=== PATIENT | female | born 1995 | race Caucasian/White ===

== ENCOUNTER 2018-09-09 06:04 | Inpatient (IN) | payer MEDICAID ==
[2018-09-09 06:45] LABS: APPEARANCE,URINE CLEAR; BILIRUBIN,URINE NEGATIVE (NEGATIVE); COLOR,URINE YELLOW; GLUCOSE, URINE NEGATIVE (NEGATIVE); KETONES,URINE NEGATIVE (NEGATIVE); LEUKOCYTE ESTERASE,URINE NEGATIVE (NEGATIVE); NITRITE,URINE NEGATIVE (NEGATIVE); PROTEIN,URINE NEGATIVE (NEGATIVE); URINE SPECIFIC GRAVITY 1.013; UROBILINOGEN,URINE NEGATIVE mg/dL (<2.0)
[2018-09-09] MEDS ORDERED: RINGERS SOLUTION,LACTATED 1,000 ML IV PRN (06:55)
--- NOTE | 2018-09-09 07:00 | Admission Physical ---
Datetime Report Generated by CPN: 09/09/2018 06:59 CURRENT ADMISSION Chief Complaint: Suspected Ruptured Membranes Indication for Induction: PROM Admit Impression : Term, Intrauterine ; No Active Labor; Ruptured Membranes Admit Plan: Admit to Unit; Initiate Labor Induction Protocol ALLERGIES Medication Allergies: No Latex: No Latex Allergies OBSTETRICAL HISTORY EDC: 09/11/2018 00:00 : 2 Para: 0 Gestational Diabetes: No Rh Sensitization: No Incompetent Cervix: No ELIEZER: No Infertility: No ART Treatment: No Uterine Anomaly: No IUGR: No Hx Previous C/S: No Macrosomia: No Hx Loss/Stillborn: No PIH: No Hx : No Placenta Previa/Abruption: No Depression/PP Depression: No PTL/PROM: No Post Hemorrhage: No Obstetrical History Comments: G1- EAB 6 weeks G2- current SEE RECORDS Alcohol: No Marijuana : No Cocaine: No Other Illicit Drugs: No Cigarettes: Never Smoker. 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 Heart Disease: No Hosp/Surgery: No Autoimmune Disorder: No Anesthetic Complications: No Kidney Disease: No Abnormal Pap Smear: No Neuro/Epilepsy: No Psychiatric Disorders: Yes Other Medical Diseases: No Hepatitis/Liver Disease: No Significant Family History: No Varicosities/Phlebitis: No Trauma/Violence : No Thyroid Dysfunction: No Medical History Comments: anxiety INFECTIOUS HISTORY Gonorrhea: No Genital Herpes: No Chlamydia: No Tuberculosis: No Syphilis: No Hepatitis: No HIV/AIDS Exposure: No Rash or Viral Illness: No HPV: No PHYSICAL EXAM General: Normal HEENT: Normal Neurologic: Normal Thyroid: Normal Heart: Normal Lungs: Normal Breast: Normal Back: Normal Abdomen: Normal Genitourinary Exam: Normal Extremities: Normal DTRs: Normal Pelvic Type: Adequate Vital Signs: Reviewed; Within Normal Limits VAGINAL EXAM Dilatation: 1 Effacement: 70 Station: -3 Contraction Comments: irregular MEMBRANES Pooling: Positive Membranes: Ruptured Amniotic Fluid Color: Clear FETUS A EGA: 39.5 Monitoring: External US FHR- Baseline: 130 Variability: Moderate 6-25bpm Accelerations: 15X15 Decelerations: None FHR Category: Category I Estimated Weight (gm): 3500 Presentation: Vertex Admit Comment: will give dose of cytotec for cervical ripening and start pitocin when cervix more favorable. PLANS FOR LABOR AND DELIVERY Pain Management: Epidural Feeding Preference: Breast Benefit of Breast Feed Discussed: Yes Circumcision: Yes INFORMED CONSENT Signature: with User ID: [email or web address]
[2018-09-09 07:02] LABS: URINE AMPHETAMINES SCREEN NEGATIVE; URINE BARBITURATES SCREEN NEGATIVE; URINE BENZODIAZEPINES SCREEN NEGATIVE; URINE COCAINE SCREEN NEGATIVE; URINE METHADONE SCREEN NEGATIVE; URINE PHENCYCLIDINE SCREEN NEGATIVE
[2018-09-09 07:11] LABS: URINE MARIJUANA (THC) SCREEN UNCONFIRMED POSITIVE
[2018-09-09] MEDS ORDERED: MISOPROSTOL 0.1 MG TABLET PO ONE (07:16)
[2018-09-09] MEDS ORDERED: MISOPROSTOL 0.1 MG TABLET PV ONE (07:19)
[2018-09-09] MEDS ORDERED: MISOPROSTOL 0.1 MG TABLET ONE (07:25)
[2018-09-09] MEDS ORDERED: MISOPROSTOL 0.2 MG TABLET ONE (07:46)
[2018-09-09] MEDS ORDERED: LIDOCAINE 1% INJ-PF (10 MG/ML) 30 ML SDV ONE (07:46)
[2018-09-09] MEDS ORDERED: OXYTOCIN/NORMAL SALINE 20 UNIT/1,000 ML RTUINJ ONE (07:47)
[2018-09-09 08:04] LABS: ABSOLUTE EOSINOPHILS # (AUTO) 0.1 10^3/uL (0.0-0.6); ABSOLUTE MONOCYTES (AUTO) 0.9 10^3/uL (0.1-1.4); ABSOLUTE NEUT (AUTO) 9.8 10^3/uL (1.7-8.2); BASOPHILS % (AUTO) 0.2 % (0-2); EOSINOPHILS % (AUTO) 0.7 % (0-6); HEMATOCRIT 33.4 % (36.0-47.0); HEMOGLOBIN 11.2 g/dL (12.0-15.5); LYMPHOCYTES % (AUTO) 15.5 % (13-45); MEAN CORPUSCULAR HGB CONC 33.7 g/dL (32.0-36.0); MEAN CORPUSCULAR VOLUME 86 fl (80-97); MONOCYTES % (AUTO) 7.2 % (3-13); PLATELET COUNT 188 10^3/uL (150-450); RED BLOOD COUNT 3.87 10^6/uL (3.72-5.28); RED CELL DISTRIBUTION WIDTH 14.5 % (11.5-14.0); SEGMENTED NEUTROPHILS % (AUTO) 76.4 % (42-78); TOTAL CELLS COUNTED % (AUTO) 100 %; WHITE BLOOD COUNT 12.9 10^3/uL (4.0-10.5)
[2018-09-09] MEDS ORDERED: OXYTOCIN/NORMAL SALINE 20 UNIT/1,000 ML RTUINJ IV PRN (11:56)
[2018-09-09] MEDS ORDERED: NALBUPHINE HCL INJ 10 MG/1 ML AMPULE ONE (16:12)
[2018-09-09] MEDS ORDERED: PROMETHAZINE HCL INJ 25 MG/1 ML VIAL ONE (16:12)
[2018-09-09] MEDS ORDERED: NALBUPHINE HCL INJ 10 MG/1 ML AMPULE INJ ONE (16:28)
[2018-09-09] MEDS ORDERED: PROMETHAZINE HCL INJ 25 MG/1 ML VIAL IV ONE (16:29)
[2018-09-09] MEDS ORDERED: ONDANSETRON HCL INJ/PF 4 MG/2 ML SDV ONE (16:51)
[2018-09-09] MEDS ORDERED: ONDANSETRON HCL INJ/PF 4 MG/2 ML SDV IV ONE (16:54)
[2018-09-09] MEDS ORDERED: BUPIVACAINE HCL 0.25 % INJ/PF (2.5 MG/1 ML) 30 ML VIAL ONE (19:56)
[2018-09-09] MEDS ORDERED: PHENYLEPHRINE HCL INJ/PF 10 MG/1 ML SDV ONE (19:56)
[2018-09-09] MEDS ORDERED: FENTANYL CITRATE INJ/PF 100 MCG/2 ML AMPUL ONE (19:56)
[2018-09-09] MEDS ORDERED: EPHEDRINE SULFATE INJ 50 MG/1 ML AMPULE ONE (19:56)
[2018-09-09] MEDS ORDERED: FENTANYL/BUPIVACAINE/NS/PF 300 MCG/150 ML RTUINJ EPI ONE (19:56)
[2018-09-09] MEDS ORDERED: LIDOCAINE 1.5%/EPINEPHRINE INJ 5 ML AMP ONE (19:57)
[2018-09-09] MEDS ORDERED: ACETAMINOPHEN 325 MG TABLET PO ONE (23:40)
[2018-09-09] MEDS ORDERED: ACETAMINOPHEN 325 MG TABLET ONE (23:41)
[2018-09-10] MEDS ORDERED: BENZOCAINE/MENTHOL AEROSOL SPRAY 56 ML TOP PRN (02:43)
[2018-09-10] MEDS ORDERED: PROMETHAZINE HCL 25 MG SUPP.RECT PR PRN (02:43)
[2018-09-10] MEDS ORDERED: ACETAMINOPHEN 650 MG SUPP.RECT PR PRN (02:43)
[2018-09-10] MEDS ORDERED: DIBUCAINE 1% OINTMENT 56 GM TP PRN (02:43)
[2018-09-10] MEDS ORDERED: GLYCERIN/WITCH HAZEL LEAF 1 EACH MED..WIPE TP PRN (02:43)
[2018-09-10] MEDS ORDERED: NA PHOS,M-B/NA PHOS,DI-BA (ADULT) 133 ML ENEMA PR PRN (02:43)
[2018-09-10] MEDS ORDERED: ACETAMINOPHEN WITH CODEINE #3 TABLET PO PRN (02:43)
[2018-09-10] MEDS ORDERED: PROMETHAZINE HCL INJ 25 MG/1 ML VIAL IV PRN (02:43)
[2018-09-10] MEDS ORDERED: DIPHENHYDRAMINE HCL 25 MG CAPSULE PO PRN (02:43)
[2018-09-10] MEDS ORDERED: OXYTOCIN/NORMAL SALINE 20 UNIT/1,000 ML RTUINJ IV PRN (02:43)
[2018-09-10] MEDS ORDERED: MAGNESIUM HYDROXIDE SUSP 30 ML UDCUP PO PRN (02:43)
[2018-09-10] MEDS ORDERED: PSEUDOEPHEDRINE HCL 30 MG TABLET PO PRN (02:43)
[2018-09-10] MEDS ORDERED: DIPH/PERTUSS(ACELL)/TETANUS VAC/PF 0.5 ML SYR (>=10YO) IM PRN (02:43)
[2018-09-10] MEDS ORDERED: MEASLES,MUMPS&RUBELLA VACC/PF 0.5 ML VIAL SUBCUT PRN (02:43)
[2018-09-10] MEDS ORDERED: PROMETHAZINE HCL 25 MG TABLET PO PRN (02:43)
[2018-09-10] MEDS ORDERED: ZOLPIDEM TARTRATE 5 MG TABLET PO PRN (02:43)
[2018-09-10] MEDS ORDERED: OXYTOCIN/NORMAL SALINE 20 UNIT/1,000 ML RTUINJ ONE (03:24)
[2018-09-10] MEDS ORDERED: METHYLERGONOVINE MALEATE INJ/PF 0.2 MG/1 ML AMPULE ONE (04:38)
[2018-09-10] MEDS ORDERED: METHYLERGONOVINE MALEATE INJ/PF 0.2 MG/1 ML AMPULE IV ONE (04:50)
[2018-09-10] MEDS ORDERED: IBUPROFEN 800 MG TABLET ONE (05:04)
[2018-09-10] MEDS: IBUPROFEN 800 MG TABLET PO SCH ×3 (05:05→22:57)
[2018-09-10] MEDS ORDERED: CARBOPROST TROMETHAMINE INJ 250 MCG/1 ML AMPULE ONE (07:19)
[2018-09-10] MEDS ORDERED: ACETAMINOPHEN 325 MG TABLET ONE (07:24)
[2018-09-10] MEDS ORDERED: ACETAMINOPHEN 325 MG TABLET PO PRN (08:02)
[2018-09-10] MEDS ORDERED: LOPERAMIDE HCL 2 MG CAPSULE PO PRN ×2 (08:03)
[2018-09-10] MEDS ORDERED: CARBOPROST TROMETHAMINE INJ 250 MCG/1 ML AMPULE IM ONE (09:00)
[2018-09-10] MEDS ORDERED: MORPHINE SULFATE 10 MG/ML INJ IV ONE (09:06)
[2018-09-10 09:51] LABS: HEMATOCRIT 25.3 % (36.0-47.0); MEAN CORPUSCULAR HEMOGLOBIN 29.3 pg (27.0-33.4); MEAN CORPUSCULAR HGB CONC 33.8 g/dL (32.0-36.0); MEAN CORPUSCULAR VOLUME 87 fl (80-97); PLATELET COUNT 210 10^3/uL (150-450); RED BLOOD COUNT 2.92 10^6/uL (3.72-5.28); RED CELL DISTRIBUTION WIDTH 14.8 % (11.5-14.0)
[2018-09-10 09:56] LABS: WHITE BLOOD COUNT 27.4 10^3/uL (4.0-10.5)
[2018-09-10 09:57] LABS: HEMOGLOBIN 8.6 g/dL (12.0-15.5)
[2018-09-10] MEDS ORDERED: AMPICILLIN SOD INJ 2 GM VIAL IV ONE (10:22)
[2018-09-10] MEDS ORDERED: METHYLERGONOVINE MALEATE 0.2 MG TABLET ONE (10:34)
[2018-09-10] MEDS: PRENATAL VITAMIN W DHA CAPSULE PO SCH (10:39)
[2018-09-10] MEDS: FAMOTIDINE 20 MG TABLET PO SCH ×2 (10:39→22:55)
[2018-09-10] MEDS: FERROUS SULFATE 325 MG TABLET PO SCH ×2 (10:39→18:31)
[2018-09-10] MEDS: DOCUSATE SODIUM 100 MG CAPSULE PO SCH ×2 (10:41→18:32)
[2018-09-10] MEDS: SENNOSIDES/DOCUSATE 8.6-50 MG 1 EACH TABLET PO SCH (10:41)
[2018-09-10] MEDS ORDERED: LIDOCAINE 1% INJ-PF (10 MG/ML) 30 ML SDV ONE (11:24)
[2018-09-10] MEDS ORDERED: AMPICILLIN SODIUM 2 GM in NORMAL SALINE 100 ML IV ONE (11:30)
[2018-09-10] MEDS ORDERED: METHYLERGONOVINE MALEATE 0.2 MG TABLET PO SCH (12:00)
[2018-09-10] MEDS: METHYLERGONOVINE MALEATE 0.2 MG TABLET PO SCH ×4 (12:07→23:35)
--- NOTE | 2018-09-10 12:12 | PDOC PROGRESS REPORT ---
Subjective-OB Progress Note for:: 09/10/18 Subjective: 22yo G2 now P1 s/p delivery day. Pt.voiding without difficulty. Upon arrival to unit, pt's nurse called me into room. Pt. has been having heavy bleeding with clots after transfer from L&D. Pt reports heart racing and a little lightheaded after passing big clot in toilet. Physical Exam (OB) Vital Signs: Temp Pulse Resp BP Pulse Ox 99.6 F 87 18 126/75 H 99 09/10/18 08:20 09/10/18 08:20 09/10/18 08:20 09/10/18 08:20 09/10/18 08:20 - PIH/Pre-Eclampsia Clonus: Negative Headache: Absent Epigastric Pain: No Visual Changes: No - Lochia Lochia Amount: Heavy >50 ml Lochia Color: Rubra/Red - Abdomen Description: Tender Hernia Present: Yes Fundal Description: Firm Fundal Height: 1/u - 2/u - Respiratory Respiratory Status: No respiratory distress - Genitourinary Female External exam: Other - bilateral labial lacerations observed on exam and hemostatic Genitourinary Note: manual exploration revealed trailing membranes. A couple fragments of membranes out as well as several clots, but unable to get a long piece that continued to be palpated. Speculum exam used and three long fragments of trailing membranes released with ring forceps. Fundus firm bleeding stable. - Extremities Upper extremity: Normal inspection Lower extremities: Edema Foot: Edema - Neurological Cognition: Normal Orientation: AAOx4 Objective-Diagnostic Laboratory: 09/10/18 08:47 09/10/18 08:47 WBC 27.4 H D RBC 2.92 L Hgb 8.6 L D Hct 25.3 L MCV 87 MCH 29.3 MCHC 33.8 RDW 14.8 H Plt Count 210 Assessment and Plan(PN) - Assessment and Plan (1) Delivery normal Is this a current diagnosis for this admission?: Yes Plan: routine pp care (2) hemorrhage Qualifiers: hemorrhage type: other immediate Qualified Code(s): O72.1 - Other immediate hemorrhage Is this a current diagnosis for this admission?: Yes Plan: cbc obtained, will repeat at 2pm will reassess as needed, anticipate blood transfusion, pt agreeable prn. Ampicillin order as 1 time dose for prophylaxis. Reviewed plan with Dr. Oliva who is the [employer] SUPERVISOR partition notcher today. - Time Spent with Patient Time with patient: Greater than 35 minutes Medications reviewed and adjusted accordingly: Yes - Disposition Anticipated Discharge: Home Within: within 24 hours
--- NOTE | 2018-09-10 12:14 | PDOC PROGRESS REPORT ---
Subjective-OB Progress Note for:: 09/10/18 - pt with continued heavy bleeding. Transported to L&D for speculum exam with stirups. No vaginal or cervical lacerations noted, Dr. Oliva in room for 2nd opinion and able to visualize oozing bleeding from right labial laceration- laceration repaired iwth 3-0 chromic, hemostasis achieved. Fundus continues to be firm at this time. Pt transfered back to her room after repair and stable at this time. Physical Exam (OB) Vital Signs: Temp Pulse Resp BP Pulse Ox 98.8 F 120 H 18 131/82 H 98 09/10/18 11:59 09/10/18 11:59 09/10/18 11:59 09/10/18 11:59 09/10/18 11:59 - PIH/Pre-Eclampsia Clonus: Negative Headache: Absent Epigastric Pain: No Visual Changes: No - Lochia Lochia Amount: Heavy >50 ml Lochia Color: Rubra/Red - Abdomen Description: Tender Hernia Present: Yes Fundal Description: Firm Fundal Height: 1/u - 2/u Objective-Diagnostic Laboratory: 09/10/18 08:47 09/10/18 08:47 WBC 27.4 H D RBC 2.92 L Hgb 8.6 L D Hct 25.3 L MCV 87 MCH 29.3 MCHC 33.8 RDW 14.8 H Plt Count 210 Assessment and Plan(PN) - Assessment and Plan (1) Delivery normal Is this a current diagnosis for this admission?: Yes (2) hemorrhage Qualifiers: hemorrhage type: other immediate Qualified Code(s): O72.1 - Other immediate hemorrhage Is this a current diagnosis for this admission?: Yes - Time Spent with Patient Medications reviewed and adjusted accordingly: Yes - Disposition Anticipated Discharge: Home
--- NOTE | 2018-09-10 14:37 | PDOC PROGRESS REPORT ---
Subjective-OB Progress Note for:: 09/10/18 - pt reports minimal bleeding since repair of laceration, eating lunch now. repeat CBC to be drawn at this time. Pt. denies concerns at this time. Physical Exam (OB) Vital Signs: Temp Pulse Resp BP Pulse Ox 98.8 F 110 H 18 131/82 H 98 09/10/18 11:59 09/10/18 12:43 09/10/18 11:59 09/10/18 11:59 09/10/18 11:59 - PIH/Pre-Eclampsia Clonus: Negative Headache: Absent Epigastric Pain: No Visual Changes: No - Lochia Lochia Amount: Heavy >50 ml Lochia Color: Rubra/Red - Abdomen Description: Tender Hernia Present: Yes Fundal Description: Firm Fundal Height: 1/u - 2/u Objective-Diagnostic Laboratory: 09/10/18 08:47 09/10/18 08:47 WBC 27.4 H D RBC 2.92 L Hgb 8.6 L D Hct 25.3 L MCV 87 MCH 29.3 MCHC 33.8 RDW 14.8 H Plt Count 210 Assessment and Plan(PN) - Assessment and Plan (1) Delivery normal Is this a current diagnosis for this admission?: Yes (2) hemorrhage Qualifiers: hemorrhage type: other immediate Qualified Code(s): O72.1 - O ther immediate hemorrhage Is this a current diagnosis for this admission?: Yes - Time Spent with Patient Medications reviewed and adjusted accordingly: Yes - Disposition Anticipated Discharge: Home
[2018-09-10 14:57] LABS: HEMATOCRIT 17.9 % (36.0-47.0); MEAN CORPUSCULAR HEMOGLOBIN 28.9 pg (27.0-33.4); MEAN CORPUSCULAR HGB CONC 33.5 g/dL (32.0-36.0); MEAN CORPUSCULAR VOLUME 86 fl (80-97); PLATELET COUNT 175 10^3/uL (150-450); RED BLOOD COUNT 2.07 10^6/uL (3.72-5.28); RED CELL DISTRIBUTION WIDTH 14.7 % (11.5-14.0); WHITE BLOOD COUNT 25.3 10^3/uL (4.0-10.5)
[2018-09-10] MEDS ORDERED: NORMAL SALINE 250 ML IV PRN ×2 (15:12)
[2018-09-11] MEDS: IBUPROFEN 800 MG TABLET PO SCH ×3 (06:15→20:59)
[2018-09-11] MEDS: METHYLERGONOVINE MALEATE 0.2 MG TABLET PO SCH ×3 (06:16→18:15)
[2018-09-11 06:46] LABS: HEMATOCRIT 19.4 % (36.0-47.0); MEAN CORPUSCULAR HEMOGLOBIN 29.6 pg (27.0-33.4); MEAN CORPUSCULAR HGB CONC 35.3 g/dL (32.0-36.0); MEAN CORPUSCULAR VOLUME 84 fl (80-97); PLATELET COUNT 143 10^3/uL (150-450); RED BLOOD COUNT 2.31 10^6/uL (3.72-5.28); RED CELL DISTRIBUTION WIDTH 14.8 % (11.5-14.0)
[2018-09-11 07:43] LABS: HEMOGLOBIN 6.8 g/dL (12.0-15.5)
--- NOTE | 2018-09-11 09:14 | PDOC PROGRESS REPORT ---
Subjective Progress Note for:: 09/11/18 Subjective:: Pt statesthat she feels good. Some palpitations. She is agreeable to receiving (2) more units of blood. Pt denies SOB, F/C, N/V and CP. bridgett lochia is decreasing and is going well. She ambulating and voiding w/o difficulty Reason For Visit: Physical Exam - Physical Exam Vital Signs: Temp Pulse Resp BP Pulse Ox 98.6 F 112 H 16 141/82 H 96 09/11/18 08:28 09/11/18 08:28 09/11/18 08:28 09/11/18 08:28 09/11/18 08:28 Intake & Output 09/10/18 09/11/18 09/12/18 06:59 06:59 06:59 Intake Total 600 Output Total 681 Balance -81 General appearance: PRESENT: no acute distress Cardiovascular exam: PRESENT: RRR, tachycardia GI/Abdominal exam: PRESENT: normal bowel sounds, soft - fundus firm and below umbilicus Musculoskeletal exam: ABSENT: ambulatory, deformity, dislocation, full ROM, normal inspection, tenderness, other Result Laboratory Results: 09/11/18 06:15 09/09/18 09/10/18 09/10/18 07:48 08:47 14:17 WBC 27.4 H D 25.3 H RBC 2.92 L 2.07 L Hgb 8.6 L D 6.0 L D Hct 25.3 L 17.9 L MCV 87 86 MCH 29.3 28.9 MCHC 33.8 33.5 RDW 14.8 H 14.7 H Plt Count 210 175 Blood Type A POSITIVE Antibody Screen NEGATIVE 09/11/18 06:15 WBC 21.0 H RBC 2.31 L Hgb 6.8 L Hct 19.4 L MCV 84 MCH 29.6 MCHC 35.3 RDW 14.8 H Plt Count 143 L Blood Type Antibody Screen Assessment & Plan - Diagnosis (2) Delivery normal Is this a current diagnosis for this admission?: Yes (3) hemorrhage Qualifiers: hemorrhage type: other immediate Qualified Code(s): O72.1 - Other immediate hemorrhage Is this a current diagnosis for this admission?: Yes - Time Time Spent with patient: Less than 15 minutes - Plan Summary Plan Summary: 1. Transfuse (2) more units of PRBCs 2. Cont PP care
[2018-09-11] MEDS: PRENATAL VITAMIN W DHA CAPSULE PO SCH (10:03)
[2018-09-11] MEDS: FERROUS SULFATE 325 MG TABLET PO SCH ×2 (10:03→18:15)
[2018-09-11] MEDS: FAMOTIDINE 20 MG TABLET PO SCH (10:03)
[2018-09-11] MEDS: SENNOSIDES/DOCUSATE 8.6-50 MG 1 EACH TABLET PO SCH (10:04)
[2018-09-11] MEDS: DOCUSATE SODIUM 100 MG CAPSULE PO SCH ×2 (10:04→18:15)
[2018-09-11 19:41] LABS: HEMATOCRIT 25.7 % (36.0-47.0); MEAN CORPUSCULAR HEMOGLOBIN 29.5 pg (27.0-33.4); MEAN CORPUSCULAR HGB CONC 34.7 g/dL (32.0-36.0); MEAN CORPUSCULAR VOLUME 85 fl (80-97); PLATELET COUNT 136 10^3/uL (150-450); RED BLOOD COUNT 3.03 10^6/uL (3.72-5.28); RED CELL DISTRIBUTION WIDTH 14.5 % (11.5-14.0); WHITE BLOOD COUNT 20.7 10^3/uL (4.0-10.5)
[2018-09-11 20:05] LABS: HEMOGLOBIN 8.9 g/dL (12.0-15.5)
[2018-09-12] MEDS ORDERED: METHYLERGONOVINE MALEATE 0.2 MG TABLET ONE ×2 (00:26→05:30)
[2018-09-12] MEDS: METHYLERGONOVINE MALEATE 0.2 MG TABLET PO SCH ×3 (00:30→12:53)
[2018-09-12] MEDS: IBUPROFEN 800 MG TABLET PO SCH (05:33)
[2018-09-12] MEDS: SENNOSIDES/DOCUSATE 8.6-50 MG 1 EACH TABLET PO SCH (10:14)
[2018-09-12] MEDS: FAMOTIDINE 20 MG TABLET PO SCH (10:14)
[2018-09-12] MEDS: DOCUSATE SODIUM 100 MG CAPSULE PO SCH (10:14)
[2018-09-12] MEDS: FERROUS SULFATE 325 MG TABLET PO SCH (10:14)
[2018-09-12] MEDS: PRENATAL VITAMIN W DHA CAPSULE PO SCH (10:14)
--- NOTE | 2018-09-12 10:51 | PDOC DISCHARGE SUMMARY ---
Final Diagnosis Discharge Date: 09/12/18 - Final Diagnosis (1) Blood transfusion during current hospitalization Is this a current diagnosis for this admission?: Yes (2) Anemia, Is this a current diagnosis for this admission?: Yes (3) Delivery normal Is this a current diagnosis for this admission?: Yes (4) hemorrhage Is this a current diagnosis for this admission?: Yes Discharge Data - Discharge Medication Prescriptions: Ibuprofen [Motrin 800 mg Tablet] 800 mg PO Q8HP PRN #60 tablet PRN Reason: Home Medications: Pnv 102/Iron/Folate 1/Dss/Dha [Vitafol Fe+ Docusate Combo Pck] 1 tab PO DAILY 09/09/18 Ferrous Sulfate [Feosol 325 mg Tablet] 325 mg PO BID tablet 09/12/18 Ibuprofen [Motrin 800 mg Tablet] 800 mg PO Q8HP PRN #60 tablet 09/12/18 Procedures: NST Intrapartum Procedure(s): Spontaneous Vaginal Delivery Complication(s): Laceration-Labial - Diagnosis Test Laboratory: Temp Pulse Resp BP Pulse Ox 97.7 F 72 16 130/76 H 100 09/12/18 07:40 09/12/18 07:40 09/12/18 07:40 09/12/18 07:40 09/12/18 07:40 09/09/18 09/09/18 09/10/18 06:07 07:48 08:47 RBC 3.87 2.92 L Hgb 11.2 L 8.6 L D Hct 33.4 L 25.3 L Urine Opiates Screen NEGATIVE 09/10/18 09/11/18 09/11/18 14:17 06:15 19:32 RBC 2.07 L 2.31 L 3.03 L Hgb 6.0 L D 6.8 L 8.9 L D Hct 17.9 L 19.4 L 25.7 L Urine Opiates Screen - Discharge information/Instructions Discharge Activity: Balance Activity w/Rest, Pelvic Rest Discharge Diet: Regular Disposition: HOME, SELF-CARE Follow up with: [facility] in: 4, Weeks
[2018-09-12 12:23] VITALS: BP 132/66
--- NOTE | 2018-10-17 09:25 | Delivery Summary ---
Del Sum A-C Datetime Report Generated by CPN: 10/17/2018 09:24 DELIVERY PERSONNEL DELIVERY PERSONNEL: [id number] Delivery Doctor:: Samir Coley MD Labor and Delivery Nurse:: Morelia Thomas RN Labor and Delivery Nurse:: Mackenzie Calderon RN Environmental Projects Advisor/FINANCIAL MANAGER: [place], DRAWING FRAME TENDER MATERNAL INFORMATION Delivery Anesthesia: Epidural Medications After Delivery: Pitocin Drip 20 Units/1000ml NSS; Cytotec 1000mcg Per Rectum/Vagina Maternal Complications: Premature Rupture of Membranes; Hemorrhage LABOR SUMMARY EDC: 09/11/2018 00:00 No. Babies in Womb: 1 Labor Anesthesia: Epidural LABOR INFORMATION Reason for Induction: Premature Rupture of Membranes Onset of Labor: 09/09/2018 22:39 Complete Dilatation: 09/10/2018 01:13 Oxytocin: Induction Group B Beta Strep: negative Reason Steroids Not Administered: Not Applicable MEMBRANES Membranes Rupture Method: Artificial Rupture of Membranes: 09/09/2018 04:00 Length of Rupture (hr): 22.55 Amniotic Fluid Color: Clear Amniotic Fluid Amount: Moderate Amniotic Fluid Odor: Normal STAGES OF LABOR Stage 1 hr: 2 Stage 1 min: 34 Stage 2 hr: 1 Stage 2 min: 20 Stage 3 hr: 0 Stage 3 min: 5 Total Time in Labor hr: 3 Total Time in Labor min: 59 VAGINAL DELIVERY Episiotomy: None Laceration #1: None Laceration Extension #1: N/A Laceration Repair: Not Applicable Sponge Count Correct: N/A BABY A INFORMATION Delivery Date/Time: 09/10/2018 02:33 Method of Delivery: Vaginal Method of Delivery: Vaginal Born in Route : No : N/A Forceps: N/A Vacuum Extraction: N/A Shoulder Dystocia : No PRESENTATION/POSITION BABY A Presentation: Cephalic Cephalic Presentation: Vertex Vertex Position: Left Occipital Anterior Breech Presentation: N/A PLACENTA INFORMATION BABY A Placenta Delivery Time : 09/10/2018 02:38 Placenta Method of Delivery: Manual Removal Placenta Status: Delivered SCORES BABY A Heart Rate 1 min: >100 bpm Resp Effort 1 min: Good Cry Reflex Irritability 1 min: Cough or Sneeze or Pulls Away Muscle Tone 1 min: Active Motion Color 1 min: Blue/Pale Resuscitation Effort 1 min: Tactile Stimulation SCORE 1 MIN: 8 Heart Rate 5 min: >100 bpm Resp Effort 5 min: Good Cry Reflex Irritability 5 min: Cough or Sneeze or Pulls Away Muscle Tone 5 min: Active Motion Color 5 min: Body [place], Extremities Blue Resuscitation Effort 5 min: Tactile Stimulation SCORE 5 MIN: 9 INFANT INFORMATION BABY A Sex: Male Infant Sex: Male IDENTIFICATION BABY A Infant Verification Date/Time: 09/10/2018 02:47 ID Band Number: [id number] Mother's Name Verified: Yes RN Verifying : Renan ValdezSALLY reyes CST WEIGHT/LENGTH BABY A Birthweight (gm): 3940 Weight (lb): 8 Infant Weight (oz): 11 Infant Length (in): 21.00 Length (cm): 53.34 CORD INFORMATION BABY A No. Cord Vessels: 3 Nuchal Cord : N/A Cord Blood Taken: Yes-For Storage (Mom's Blood type +) Infant Suction: Mouth; Nose ASSESSMENT BABY A Infant Complications: None Physical Findings at Delivery: Within Normal Limits Skin to Skin: Yes Skin to Skin: Yes Transferred To: Remains with Mother SIGNATURES Signature: with User ID: [email or web address]
== END 2018-09-12 14:45 | disposition home or self-care (01) | DRG 806 ==
LOC: LC 06:04 → LR 06:55 → 2S 09-10 05:14
PROVIDERS: ADMIT Obstetrics & Gynecology; ATTEND Obstetrics & Gynecology
PROC: 10E0XZZ Delivery of Products of Conception, External Approach (ICD-10-PCS; principal; 2018-09-09)
PROC: 0UQMXZZ Repair Vulva, External Approach (ICD-10-PCS; 2018-09-09)
PROC: 10D17Z9 Manual Extraction of Products of Conception, Retained, Via Natural or Artificial Opening (ICD-10-PCS; 2018-09-10)
PROC: 30233N1 Transfusion of Nonautologous Red Blood Cells into Peripheral Vein, Percutaneous Approach (ICD-10-PCS; 2018-09-10)
PROC: 10J1XZZ Inspection of Products of Conception, Retained, External Approach (ICD-10-PCS; 2018-09-10)
PROC: 30233N1 Transfusion of Nonautologous Red Blood Cells into Peripheral Vein, Percutaneous Approach (ICD-10-PCS; 2018-09-11)
DX: O42.92 Full-term premature rupture of membranes, unspecified as to length of time between rupture and onset of labor (principal); O72.1 Other immediate postpartum hemorrhage; Z37.0 Single live birth; Z3A.39 39 weeks gestation of pregnancy; O99.013 Anemia complicating pregnancy, third trimester; O70.0 First degree perineal laceration during delivery; R00.0 Tachycardia, unspecified
CPT/HCPCS: 36415; 36430; 80307; 80349; 81005; 84112; 85025; 85027; 86592; 86850; 86900; 86901; 86920; 94760; G0480; J0290; J2210; J2270; J2300; J2370; J2405; J2550; J2590; J3010; J3490; J7050; P9016